=== PATIENT | male | born 1965 | race Caucasian/White ===

== ENCOUNTER → 2018-12-13 | Outpatient (REF) | payer OTHER, MEDICAID ==
[2018-12-13 14:10] LABS: APPEARANCE, URINE CLEAR (CLEAR); BACTERIA, URINE AUTO NEGATIVE (NEGATIVE); BILIRUBIN, URINE AUTO NEGATIVE (NEGATIVE); BLOOD, URINE BLOOD 1+ (NEGATIVE); COLOR, URINE STRAW (YELLOW); GLUCOSE, URINE (UA) AUTO NEGATIVE (NEGATIVE); KETONE, URINE AUTO NEGATIVE (NEGATIVE); LEUKOCYTE ESTERASE, URINE AUTO NEGATIVE (NEGATIVE); NITRITE, URINE AUTO NEGATIVE (NEGATIVE); PROTEIN, URINE AUTO NEGATIVE (NEGATIVE); RBC, URINE AUTO 0 /HPF (0-3); SPECIFIC GRAVITY URINE AUTO 1.008 (1.002-1.035); SQUAMOUS EPITHELIAL CELL UR AU 0 /HPF (0-6); UROBILINOGEN, URINE AUTO 0.2 mg/dL (0.0-2.0); WBC, URINE AUTO 2 /HPF (0-3)
== END ==
LOC: M SMT 12:42
PROVIDERS: ATTEND Nurse Practitioner Family
DX: N39.41 Urge incontinence (principal)

== ENCOUNTER → 2019-01-29 | Outpatient (REF) ==
--- NOTE | 2019-01-30 02:56 | REP ---
Clinical: Pain and disability. Technique: AP, lateral, coned down views of the lumbosacral spine. Findings: Alignment and lordosis maintained. No acute fracture / compression injury or subluxation. Early advanced multilevel degenerative changes include osteophytosis, endplate sclerosis, hypertrophic facet changes, and multilevel disc space narrowing. Impression: Early advanced multilevel degenerative changes. Electronically Signed by Rafael Hobbs MD 01/30/2019 02:47 A
--- NOTE | 2019-01-30 03:26 | REP ---
Clinical: Pain and disability. Technique: AP, lateral, open mouth views of the cervical spine. Findings: Advanced multilevel degenerative disc osteophyte complexes are appreciated primarily involving C4-5 through C7-T1. No acute fracture / compression injury. Open mouth view demonstrates normal C1-C2 articulation and odontoid process. Impression: Advanced multilevel degenerative changes. Electronically Signed by Rafael Hobbs MD 01/30/2019 03:17 A
== END ==
LOC: M SMT 10:08
PROVIDERS: ATTEND Internal Medicine
DX: M25.78 Osteophyte, vertebrae (principal)

== ENCOUNTER 2019-03-30 19:42 | Emergency (ER) | payer MEDICAID, OTHER ==
[~2019-03-30] VITALS: Ht 185.4 cm; Wt 89.9 kg
[2019-03-30] MEDS ORDERED: OXYB10TA2 PO (19:52)
[2019-03-30] MEDS ORDERED: traMADol 50 MG TAB PO ONE (21:15)
[2019-03-30] MEDS ORDERED: ULTR50TA8 PO (21:15)
[2019-03-30 21:26] VITALS: BP 129/72
--- NOTE | 2019-03-31 01:57 | REP ---
Clinical: Trauma . Technique: AP, lateral, bilateral oblique views of the left elbow. Findings: No acute fracture or dislocation is appreciated. Joint spaces and surrounding soft tissues appear normal. Lateral view demonstrates normal positioning to the anterior and posterior fat pads without evidence for effusion/hemarthrosis. No subcutaneous emphysema or foreign body identified. Impression: No no acute fracture or dislocation. Electronically Signed by Rafael Hobbs MD 03/31/2019 01:49 A
== END 2019-03-30 21:24 | disposition home or self-care (01) ==
LOC: M ED 19:42
DX: S59.902A Unspecified injury of left elbow, initial encounter (principal); X50.9XXA Other and unspecified overexertion or strenuous movements or postures, initial encounter; Y92.89 Other specified places as the place of occurrence of the external cause; Y99.0 Civilian activity done for income or pay; I10 Essential (primary) hypertension; J45.909 Unspecified asthma, uncomplicated; Z88.5 Allergy status to narcotic agent; F17.210 Nicotine dependence, cigarettes, uncomplicated

== ENCOUNTER → 2019-07-28 | Outpatient (REF) | payer OTHER ==
[~2019-07-28] MED LIST: OXYB10TA23 PO; ULTR50TA8 PO
== END ==
LOC: M SFHCPLAZ 11:55
PROVIDERS: ATTEND Family Medicine
DX: Z13.1 Encounter for screening for diabetes mellitus (principal); Z13.220 Encounter for screening for lipoid disorders; N50.89 Other specified disorders of the male genital organs

== ENCOUNTER → 2019-07-28 | Outpatient (CLI) | payer OTHER ==
[2019-07-28 18:30] LABS: APPEARANCE, URINE CLEAR (CLEAR); BACTERIA, URINE AUTO NEGATIVE (NEGATIVE); BILIRUBIN, URINE AUTO NEGATIVE (NEGATIVE); BLOOD, URINE BLOOD 1+ (NEGATIVE); COLOR, URINE YELLOW (YELLOW); GLUCOSE, URINE (UA) AUTO NEGATIVE (NEGATIVE); KETONE, URINE AUTO NEGATIVE (NEGATIVE); LEUKOCYTE ESTERASE, URINE AUTO NEGATIVE (NEGATIVE); NITRITE, URINE AUTO NEGATIVE (NEGATIVE); PROTEIN, URINE AUTO NEGATIVE (NEGATIVE); RBC, URINE AUTO 2 /HPF (0-3); SQUAMOUS EPITHELIAL CELL UR AU 0 /HPF (0-6); UROBILINOGEN, URINE AUTO 0.2 mg/dL (0.0-2.0); WBC, URINE AUTO 1 /HPF (0-3)
[2019-07-28 18:42] LABS: BLOOD UREA NITROGEN 10 MG/DL (7-18); CALCIUM LEVEL 8.6 MG/DL (8.5-10.1); CARBON DIOXIDE LEVEL 30 MEQ/L (21-32); CHLORIDE LEVEL 107 MEQ/L (98-107); CHOLESTEROL LEVEL 174 MG/DL (<200); CREATININE FOR GFR 1.04 MG/DL (0.70-1.30); GLOMERULAR FILTRATION RATE > 60.0 (>56); GLUCOSE, FASTING 78 MG/DL (70-100); HDL CHOLESTEROL 40 MG/DL (>40); LDL CHOLESTEROL 120 MG/DL (<100); NON-HDL-C 134 MG/DL; POTASSIUM SERUM 4.7 MEQ/L (3.5-5.1); SODIUM LEVEL 141 MEQ/L (136-145); TRIGLYCERIDES LEVEL 71 MG/DL (<150)
[2019-07-28 22:56] LABS: CHLAMYDIA DNA AMPLIFICATION NEGATIVE (NEGATIVE); GC DNA AMPLIFICATION NEGATIVE (NEGATIVE)
== END ==
LOC: M PLALAB 12:07
PROVIDERS: ATTEND Obstetrics & Gynecology
DX: Z13.1 Encounter for screening for diabetes mellitus (principal); Z13.220 Encounter for screening for lipoid disorders; N50.89 Other specified disorders of the male genital organs

== ENCOUNTER → 2019-08-04 | Outpatient (CLI) | payer OTHER ==
--- NOTE | 2019-08-05 02:01 | REP ---
Clinical: Right testicular mass/lump. Technique: Real time welch scale and color Doppler evaluation using linear high frequency transducer. Findings: The bilateral testicles are relatively heterogeneous, and symmetric in appearance, size and vascularity without evidence for intratesticular mass lesion, infectious/inflammatory process or torsion. Small bilateral epididymal cysts measure at 3 x 3 x 2 mm on the right and 3 x 3 x 3 mm on the left. The patient's palpable mass corresponds to a 6 mm simple cyst possibly related to the right testicular tunica at the mid pole level. Mild bilateral varicoceles are suggested measuring up to approximately 3.5 mm on Valsalva. No hydroceles. Right testicle measures 3.7 x 1.4 x 2.1 cm. Left testicle measures 3.5 x 1.7 x 2.1 cm. Impression: 1. Essentially symmetric and relatively age-appropriate appearance to the bilateral testicles. 2. Right-sided palpable mass corresponds to 6 mm simple appearing cyst possibly related to the right testicular tunica at the mid pole level. 3. Small incidental epididymal cysts and mild early varicocele type changes. Electronically Signed by Rafael Hobbs MD 08/05/2019 01:52 A
== END ==
LOC: M RAD 12:42
PROVIDERS: ATTEND Obstetrics & Gynecology
DX: N50.89 Other specified disorders of the male genital organs (principal)

== ENCOUNTER 2019-08-13 14:55 | Emergency (ER) | payer OTHER ==
[~2019-08-13] VITALS: Ht 185.4 cm; Wt 96.8 kg
[~2019-08-13 14:55] MED LIST changes: -PERC5TAB12 PO
[2019-08-13 15:26] LABS: BASO # 0.1 10^3/uL (0.0-0.2); BASO % 0.5 % (0.0-1.0); EOS # 0.3 10^3/uL (0.0-0.5); EOS % 2.5 % (0.0-3.0); HEMATOCRIT 47.9 % (42.0-52.0); LYMPH # 2.6 10^3/uL (1.5-5.0); LYMPH % 25.2 % (24.0-44.0); MEAN CORPUSCULAR HEMOGLOBIN 32.1 pg (27.0-33.0); MEAN CORPUSCULAR HGB CONC 33.4 g/dl (32.0-36.5); MEAN CORPUSCULAR VOLUME 96.2 fl (80.0-96.0); MONO % 9.4 % (0.0-5.0); NEUTROPHILS # 6.4 10^3/uL (1.5-8.5); PLATELET COUNT, AUTOMATED 173 10^3/uL (150-450); RED BLOOD COUNT 4.98 10^6/uL (4.30-6.10); WHITE BLOOD COUNT 10.3 10^3/uL (4.0-10.0)
[2019-08-13] MEDS ORDERED: MORPHINE 4 MG/ML 1ML VIAL/SYRINGE (J2270) IV ONE (15:30)
[2019-08-13 15:59] LABS: ALBUMIN 3.9 GM/DL (3.2-5.2); ALT/SGPT 20 U/L (12-78); BILIRUBIN,DIRECT 0.1 MG/DL (0.0-0.2); BILIRUBIN,TOTAL 0.4 MG/DL (0.2-1.0); BLOOD UREA NITROGEN 9 MG/DL (7-18); CALCIUM LEVEL 9.1 MG/DL (8.5-10.1); CARBON DIOXIDE LEVEL 27 MEQ/L (21-32); CHLORIDE LEVEL 106 MEQ/L (98-107); CREATININE FOR GFR 1.07 MG/DL (0.70-1.30); GLOMERULAR FILTRATION RATE > 60.0 (>56); GLUCOSE, FASTING 98 MG/DL (70-100); LIPASE 86 U/L (73-393); POTASSIUM SERUM 4.1 MEQ/L (3.5-5.1); SODIUM LEVEL 140 MEQ/L (136-145); TOTAL PROTEIN 7.2 GM/DL (6.4-8.2)
[2019-08-13] MEDS ORDERED: ISOVUE-370 76% 100ML VIAL (Q9967) As Ordered ONE (16:06)
[2019-08-13 17:00] VITALS: BP 130/75
--- NOTE | 2019-08-13 17:22 | REP ---
CT ABDOMEN AND PELVIS WITH IV CONTRAST: TECHNIQUE: Axial contrast enhanced images from the lung bases to the pubic symphysis using 100 mL Isovue 370 intravenous contrast material with multiplanar reformations. Visualized lung bases are clear. The liver is unremarkable. Gallbladder is grossly unremarkable. Spleen is normal in size with no intrinsic abnormality. There is mild left adrenal gland thickening probably representing adenomatous change. Right adrenal gland is normal. Pancreas demonstrates no mass. Kidneys are fused. There is no hydronephrosis. There is a small cyst in the upper left kidney and there is a small cyst in the lower right kidney. Urinary bladder is mildly distended and grossly unremarkable. There is no abdominal aortic aneurysm. There is no adenopathy. There is no free air or free fluid. No bowel wall thickening is seen. No anterior abdominal wall hernia is seen. IMPRESSION: No acute abnormalities. The kidneys are fused. No hydronephrosis. No free air or free fluid. No bowel wall thickening. Electronically Signed by Warren Robledo MD 08/14/2019 11:09 A
[2019-08-13] MEDS ORDERED: PERC5TAB12 PO (18:01)
[2019-08-13] MEDS ORDERED: PERCOCET 5MG/325MG TAB PO ONE (18:15)
== END 2019-08-13 18:20 | disposition home or self-care (01) ==
LOC: M ED 14:55 → EDBD 14:55 → M ED 18:20
DX: R10.32 Left lower quadrant pain (principal); R19.7 Diarrhea, unspecified; R11.0 Nausea; I10 Essential (primary) hypertension; Z87.440 Personal history of urinary (tract) infections; F17.210 Nicotine dependence, cigarettes, uncomplicated; Z88.5 Allergy status to narcotic agent; Z79.899 Other long term (current) drug therapy
CPT/HCPCS: 74177; 80048; 80076; 81001; 83690; 85025; 87507; 93041; 96374; 99284; J2270; Q9967

== ENCOUNTER → 2019-08-13 | Outpatient (REF) | payer OTHER ==
[~2019-08-13] MED LIST changes: +PERC5TAB12 PO
[2019-08-13 17:29] LABS: APPEARANCE, URINE CLEAR (CLEAR); BACTERIA, URINE AUTO NEGATIVE (NEGATIVE); BILIRUBIN, URINE AUTO NEGATIVE (NEGATIVE); BLOOD, URINE BLOOD 1+ (NEGATIVE); COLOR, URINE STRAW (YELLOW); GLUCOSE, URINE (UA) AUTO NEGATIVE (NEGATIVE); KETONE, URINE AUTO NEGATIVE (NEGATIVE); LEUKOCYTE ESTERASE, URINE AUTO NEGATIVE (NEGATIVE); NITRITE, URINE AUTO NEGATIVE (NEGATIVE); PROTEIN, URINE AUTO NEGATIVE (NEGATIVE); RBC, URINE AUTO 1 /HPF (0-3); SPECIFIC GRAVITY URINE AUTO 1.005 (1.002-1.035); SQUAMOUS EPITHELIAL CELL UR AU 0 /HPF (0-6); UROBILINOGEN, URINE AUTO 0.2 mg/dL (0.0-2.0); WBC, URINE AUTO 0 /HPF (0-3)
== END ==
LOC: M SMT 16:44
PROVIDERS: ATTEND Nurse Practitioner Family
DX: N39.41 Urge incontinence (principal)